=== PATIENT | female | born 1980 | race Caucasian/White ===

== ENCOUNTER → 2022-05-10 13:12 | Outpatient (REF) | payer OTHER, SELFPAY | LOC: ANHLAB 13:12 | PROVIDERS: PCP Family Medicine; Visit Provider Nurse Practitioner | DX: D22.39 Melanocytic nevi of other parts of face (principal) | CPT/HCPCS: 88305 ==

== ENCOUNTER 2022-06-03 15:16 | Outpatient (CLI) | payer OTHER, SELFPAY ==
--- NOTE | ~2022-06-03 | XR_ITS ---
XR lumbar spine 2-3V DATE: 06/03/2022 15:47 INDICATION: Chronic back pain TECHNIQUE: AP, lateral, coned lateral lumbosacral views COMPARISON: None FINDINGS: There is minimal dextroscoliosis of the lumbar spine. Moderate likely chronic L1 compression fracture deformity with anterior wedging. No recent fracture or bone destruction is detected. Included T11-L5 pedicles are intact. Mild to moderate degenerative disc disease at L1-2 and L2-3. Moderate to moderately severe degenerati ve disc disease and mild retrolisthesis at L5-S1. Degenerative changes at the apophyseal joints in the mid to lower lumbosacral area with associated sl ight anterolisthesis at L4-5. IMPRESSION: Old L1 moderate compression fracture deformity Multilevel degenerative disc disease, greatest at L5-S1 Reviewed, dictated and finalized at location A.
--- NOTE | ~2022-06-03 | XR_ITS ---
XR pelvis min 3V DATE: 06/03/2022 15:47 INDICATION: Chronic pelvic, sacroiliac pain TECHNIQUE: AP views COMPARISON: None FINDINGS: The pubic symphysis and sacral iliac joints are intact. Hip joint spaces are symmetric and well preserved. No pelvic fracture or bone destruction is detected. IMPRESSION: No significant abnormality Reviewed, dictated and finalized at location A. IMPRESSION: No significant abnormality
== END 2022-06-03 15:17 | disposition home or self-care (01) ==
PROVIDERS: PCP Family Medicine; Visit Provider Family Medicine
DX: M53.3 Sacrococcygeal disorders, not elsewhere classified (principal); M54.50 Low back pain, unspecified; M43.8X6 Other specified deforming dorsopathies, lumbar region; M51.37 Other intervertebral disc degeneration, lumbosacral region
CPT/HCPCS: 72100; 72190

== ENCOUNTER 2024-02-06 08:57 | Outpatient (CLI) | payer OTHER, SELFPAY ==
[2024-02-06 09:15] LABS: Alanine Aminotransferase 20 U/L (6-35); Albumin Level 4.8 g/dL (3.5-5.1); Alkaline Phosphatase 40 U/L (38-126); Anion Gap 7 mmol/L (8-16); Aspartate Amino Transferase 25 U/L (14-36); Bilirubin,Total 0.5 mg/dL (0.2-1.3); Blood Urea Nitrogen 14 mg/dL (7-17); Calcium 9.4 mg/dL (8.4-10.2); Carbon Dioxide 28 mmol/L (22-30); Chloride 103 mmol/L (98-107); Cholesterol 186 mg/dL (0-200); Estimated Glomerular Filt Rate > 60; Glucose 93 mg/dL (65-110); HDL Direct 69 mg/dL; LDL Cholesterol Direct 107 mg/dL; Potassium 3.8 mmol/L (3.4-5.0); Sodium 138 mmol/L (137-145); Triglycerides 66 mg/dL (<150)
[2024-02-06 09:19] LABS: Basophils Percent Auto 0.6 % (0.2-1.2); Eosinophils Absolute Auto 0.1 K/mm3 (0-0.3); Eosinophils Percent Auto 1.8 % (0-4.4); Hematocrit 40.1 % (37.0-47.0); Hemoglobin 13.2 g/dL (12.0-15.0); Immature Granulocyte Absolute 0.02 K/mm3 (0.00-0.031); Immature Granulocyte Percent A 0.4 % (0-0.5); Lymphocytes Absolute Auto 1.51 K/mm3 (0.9-3.2); Lymphocytes Percent Auto 27.9 % (18.3-44.2); Mean Corpuscular HGB Conc 32.9 g/dl (32-36); Mean Corpuscular Hemoglobin 30.1 pg (26-34); Mean Corpuscular Volume 91.6 fl (80-100); Monocytes Absolute Auto 0.5 K/mm3 (0.1-0.6); Monocytes Percent Auto 8.3 % (2.6-8.5); Neutrophils Absolute Auto 3.3 K/mm3 (1.3-6.7); Platelet Count Result 272 k/mm3 (150-375); Red Blood Count 4.38 M/mm3 (4.2-5.4); Red Cell Distribution Width 12.1 % (11.5-14.5); White Blood Count 5.4 K/mm3 (4.5-10.0)
[2024-02-06 09:27] LABS: Appearance Urine Clear (Clear); Bilirubin Urine Negative (Negative); Blood Urine Negative (Negative); Color Urine Yellow (Yellow); Glucose Urine UA Negative (Negative); Ketones Urine Negative (Negative); Leukocyte Esterase Ur Negative LEU/UL (Negative); Nitrate Urine Negative (Negative); Protein Urine Negative (Negative); Specific Grav Ur 1.005 (1.001-1.035); Uric Acid 5.3 mg/dL (2.5-7.5); Urobilinogen Urine 0.2 mg/dL (<2.0); pH Urine 7.5 (5.0-9.0)
[2024-02-06 09:38] LABS: Add Urine Microscopic? NO
[2024-02-06 09:41] LABS: Erythrocyte Sedimentation Rate 10 mm/hr (0-20)
[2024-02-09 19:47] LABS: ANA Cascade Screen Negative (Negative)
[2024-02-09 21:09] LABS: Anti Cyclic Citrullinated Pept <16 Units (<20)
== END 2024-02-06 08:58 | disposition home or self-care (01) ==
LOC: ANHLAB 08:58
PROVIDERS: PCP Family Medicine; Visit Provider Family Medicine
DX: S32.010A Wedge compression fracture of first lumbar vertebra, initial encounter for closed fracture (principal); I10 Essential (primary) hypertension; E78.2 Mixed hyperlipidemia; M41.9 Scoliosis, unspecified; R53.82 Chronic fatigue, unspecified; M19.90 Unspecified osteoarthritis, unspecified site; E79.0 Hyperuricemia without signs of inflammatory arthritis and tophaceous disease; X58.XXXA Exposure to other specified factors, initial encounter; Z82.61 Family history of arthritis
CPT/HCPCS: 36415; 80053; 80061; 81003; 84443; 84550; 85025; 85652; 86038; 86200; 86225; 86235; 86364